=== PATIENT | female | born 1990 | race Caucasian/White ===

== ENCOUNTER → 2017-03-06 | Outpatient (CLI) | payer BC ==
--- NOTE | 2017-03-12 13:42 | EM ---
24 HOUR DCG REPORT DATE OF SERVICE: AGE: 26Y SEX: F INDICATIONS: Patient in her diary indicated activities but no symptoms were reported. Predominant rhythm appears to be sinus with a heart rate ranged from 54 to 160 beats per minute with average heart rate of 89 beats per minute. There was some baseline artifact noted, sinus tachycardia was noted. Rare isolated PVCs were noted. Rhythm with isolated PACs and PVCs were noted. There was no evidence of any significant tachy or bradyarrhythmias. FINAL IMPRESSION: Unremarkable 24-hour DCG with predominant sinus rhythm, sinus tachycardia. Rare isolated premature atrial contractions and premature ventricular contractions were noted. Specifically, no evidence of supraventricular tachycardia, ventricular tachycardia or bradyarrhythmia.
== END | disposition home or self-care (01) ==
LOC: RADECHMAIN 12:18
PROVIDERS: ATTEND Family Medicine
DX: R00.0 Tachycardia, unspecified (principal); I49.3 Ventricular premature depolarization; I49.1 Atrial premature depolarization
CPT/HCPCS: 93225; 93226

== ENCOUNTER → 2017-06-20 | Outpatient (CLI) | payer BC ==
--- NOTE | 2017-06-20 10:04 | USB ---
Reason for exam: clinical finding. History: Taking hormonal contraceptives for 1 year. Physical Findings: Nurse did not find any significant physical abnormalities on exam. US Breast LT Left breast ultrasound includes all four quadrants, the retroareolar region and axilla. Finding demonstrates a 7 x 4 x 6mm oval, solid, hypoechoic, lesion at 10 o'clock at nipple and a 13 x 7 x 11mm solid hypoechoic lesion at 11 o'clock 8.8cm from nipple. These results were verbally communicated with the patient and result sheet given to the patient on 06/20/17. ASSESSMENT: Probably benign, BI-RAD 3 RECOMMENDATION: Ultrasound of the left breast in 3 months. (3-6 months)
== END | disposition home or self-care (01) ==
LOC: RADUSWWP 08:18
PROVIDERS: ATTEND Obstetrics & Gynecology
DX: N60.02 Solitary cyst of left breast (principal)